=== PATIENT | male | born 1980 | race Caucasian/White ===

== ENCOUNTER 2017-03-24 13:04 | Emergency (ER) | payer OTHER ==
[~2017-03-24] VITALS: Ht 193 cm; Wt 100.0 kg
[2017-03-24] MEDS ORDERED: FAMOTIDINE 20 MG/2 ML IVP ONE (13:30)
[2017-03-24] MEDS ORDERED: SODIUM CHLORIDE 0.9% 1,000ML IVBOLUS ONE (13:30)
[2017-03-24] MEDS ORDERED: SODIUM CHLORIDE FLUSH 10ML SYR IVF ONE (13:30)
[2017-03-24] MEDS ORDERED: ONDANSETRON 2MG/ML, 2ML IVPush ONE (13:30)
[2017-03-24 13:56] LABS: HEMATOCRIT 53.4 % (39.2-51.8); HEMOGLOBIN 18.2 g/dL (13.7-18.0)
[2017-03-24] MEDS ORDERED: FAMOTIDINE 20 MG/2 ML ONE (13:57)
[2017-03-24] MEDS ORDERED: ONDANSETRON 2MG/ML, 2ML ONE (13:57)
[2017-03-24] MEDS ORDERED: HYDROmorphone 1 MG/ML, 1ML ONE ×2 (13:57→15:57)
[2017-03-24 14:08] LABS: ASPARTATE AMINO TRANSFERASE 26 U/L (15-37); BLOOD UREA NITROGEN 27 mg/dL (7-18)
[2017-03-24] MEDS: HYDROmorphone 1 MG/ML, 1ML IVPush PRN ×2 (14:11→15:59)
[2017-03-24 17:14] VITALS: BP 139/98
== END 2017-03-24 17:14 | disposition home or self-care (01) ==
LOC: ED 15:48
DX: R10.84 Generalized abdominal pain (principal); R11.2 Nausea with vomiting, unspecified
CPT/HCPCS: 36415; 74176; 80053; 81003; 83690; 85025; 96361; 96374; 96375; 96376; 99285; J1170; J2405; J7030; S0028

== ENCOUNTER 2020-10-02 19:17 | Observation (INO) | payer OTHER ==
[~2020-10-02] VITALS: Ht 193 cm; Wt 100.9 kg
[2020-10-02 19:46] LABS: BASOPHILS % (AUTO) 0 % (0-1); EOSINOPHILS % (AUTO) 2 % (1-7); LYMPHOCYTES % (AUTO) 8 % (22-44); MEAN CORPUSCULAR HEMOGLOBIN 32.5 pg (27.5-34.5); MEAN CORPUSCULAR HGB CONC 35.3 g/dL (33.2-36.2); MONOCYTES % (AUTO) 5 % (2-9); NEUTROPHILS % (AUTO) 85 % (42-75); PLATELET COUNT 236 x10^3/uL (130-400); RED BLOOD COUNT 5.78 x10^6/uL (4.38-5.82); RED CELL DISTRIBUTION WIDTH 12.9 % (9.4-14.8)
[2020-10-02 19:51] LABS: MD NO
[2020-10-02 20:00] LABS: ALBUMIN 4.3 g/dL (3.4-5.0); ANION GAP 5 mmol/L (5-15); CALCIUM 8.8 mg/dL (8.5-10.1); CHLORIDE 112 mmol/L (98-107); CREATININE 1.16 mg/dL (0.7-1.3)
[2020-10-02] MEDS ORDERED: LORazepam 2 MG/ML, 1ML IV ONE (20:00)
[2020-10-02 20:03] LABS: TROPONIN I < 0.015 ng/mL (0.000-0.045)
[2020-10-02 20:10] LABS: INTERNATIONAL NORMALIZED RATIO 0.97 (0.93-1.1); PROTHROMBIN TIME 10.4 Seconds (9.6-11.5)
[2020-10-02 20:11] LABS: D-DIMER < 0.19 ug/mlFEU (0.00-0.52)
[2020-10-02] MEDS ORDERED: LORazepam 2 MG/ML, 1ML ONE (20:22)
[2020-10-02] MEDS ORDERED: ENALAPRILAT 1.25 MG/ML, 2ML IVPush PRN (21:00)
[2020-10-02] MEDS ORDERED: LABETALOL 5MG/ML, 20ML IVPush PRN (21:00)
[2020-10-02] MEDS ORDERED: ASPIRIN 81 MG TABLET CHEW PO ONE (21:00)
[2020-10-02] MEDS ORDERED: ENALAPRILAT 1.25 MG/ML, 2ML IV ONE (21:00)
[2020-10-02] MEDS ORDERED: DOCUSATE 100 MG CAPSULE PO PRN (21:00)
[2020-10-02] MEDS ORDERED: NITROGLYCERIN 0.4 MG/SPRAY SL PRN (21:00)
[2020-10-02] MEDS ORDERED: morphine SULFATE 10 MG/ML, 1ML IV PRN (21:30)
[2020-10-02] MEDS ORDERED: ENALAPRILAT 1.25 MG/ML, 1ML ONE (21:34)
[2020-10-02] MEDS ORDERED: ASPIRIN 81 MG TABLET CHEW ONE (21:35)
[2020-10-02 22:12] VITALS: BP 148/95
[2020-10-02 22:15] VITALS: BP 148/95
[2020-10-02 23:03] LABS: CHOL/HDL RATIO 4.7; LDL/HDL RATIO 2.3 (0.5-3.0)
[2020-10-02 23:57] LABS: TROPONIN I < 0.015 ng/mL (0.000-0.045)
[2020-10-03 01:45] VITALS: BP 142/92
[2020-10-03 05:35] LABS: BASOPHILS % (AUTO) 1 % (0-1); EOSINOPHILS % (AUTO) 2 % (1-7); LYMPHOCYTES % (AUTO) 14 % (22-44); MEAN CORPUSCULAR HEMOGLOBIN 32.9 pg (27.5-34.5); MEAN CORPUSCULAR HGB CONC 35.5 g/dL (33.2-36.2); MEAN PLATELET VOLUME 8.6 fL (7.4-10.4); MONOCYTES % (AUTO) 7 % (2-9); NEUTROPHILS % (AUTO) 76 % (42-75); PLATELET COUNT 217 x10^3/uL (130-400); RED BLOOD COUNT 5.22 x10^6/uL (4.38-5.82); RED CELL DISTRIBUTION WIDTH 12.7 % (9.4-14.8)
[2020-10-03 05:37] LABS: ANION GAP 7 mmol/L (5-15); CALCIUM 8.3 mg/dL (8.5-10.1); CHLORIDE 108 mmol/L (98-107)
[2020-10-03 05:44] LABS: CREATININE 1.25 mg/dL (0.7-1.3); TROPONIN I < 0.015 ng/mL (0.000-0.045)
[2020-10-03 05:45] LABS: MD NO
[2020-10-03] MEDS ORDERED: ASPIRIN 325 MG TABLET EC PO SCH (06:00)
[2020-10-03 07:12] VITALS: BP 141/90
[2020-10-03] MEDS ORDERED: REGADENOSON 0.4 MG/5 ML SYRINGE ONE (07:24)
[2020-10-03 13:37] LABS: ALANINE AMINOTRANSFERASE 45 U/L (12-78)
[2020-10-03] MEDS ORDERED: METO25TA35 PO (14:15)
[2020-10-03] MEDS ORDERED: METOPROLOL TARTRATE 25 MG TAB PO SCH (18:00)
[2020-10-03] MEDS ORDERED: ATORVASTATIN 80 MG TABLET PO SCH (21:00)
== END 2020-10-03 15:21 | disposition home or self-care (01) ==
LOC: ED 21:18 → EDIP 21:35 → INTOOBSV 21:35 → 5SO 22:08 → DCLOUNGE 10-03 15:11
PROVIDERS: ADMIT Family Medicine; ATTEND Hospitalist
DX: R07.89 Other chest pain (principal); I10 Essential (primary) hypertension; I20.9 Angina pectoris, unspecified; E78.1 Pure hyperglyceridemia; E78.5 Hyperlipidemia, unspecified; F17.290 Nicotine dependence, other tobacco product, uncomplicated; Z79.899 Other long term (current) drug therapy
CPT/HCPCS: 36415; 71046; 71275; 78452; 80048; 80061; 82040; 83690; 84443; 84450; 84460; 84484; 85025; 85379; 85610; 93005; 93017; 96374; 99285; A9502; G0378; J2060; J2785

== ENCOUNTER 2020-10-05 03:41 | Emergency (ER) | payer OTHER ==
[~2020-10-05] VITALS: Ht 193 cm; Wt 100.0 kg
[~2020-10-05 03:41] MED LIST: METO25TA35 PO
[2020-10-05] MEDS ORDERED: SODIUM CHLORIDE FLUSH 10ML SYR IVF ONE (04:00)
[2020-10-05] MEDS ORDERED: FAMOTIDINE 20 MG TABLET ONE (04:14)
[2020-10-05] MEDS ORDERED: ONDANSETRON ODT 4 MG ONE (04:14)
[2020-10-05] MEDS ORDERED: HYDROcodone/APAP 5/325 TABLET ONE (04:15)
[2020-10-05] MEDS ORDERED: MAALOX/HYOSCYAMINE/LIDOCAINE 45 ML BTL ONE (04:15)
--- NOTE | 2020-10-05 04:18 | NUR ---
PATIENT REPORTS THAT HE WENT TO THE D[facility]ING MANA[facility] YESTERDAY FOR HIGH BP AND "I THOUGHT I HAD A HEART ATTACK" AND STATES HE WAS PUT ON MEDICATIONS BUT ONLY PICKED UP ONE OUT OF 3 OF THEM YESTERDAY. HE STATES HE HAS NOT TAKEN A DOSE YET. METOPROLOL 25MG
--- NOTE | 2020-10-05 04:23 | NUR ---
PATIENT RESTING IN BED IN NAD. CALL [facility] IN [place]. DR GROVES PERFORMED RECTAL EXAM WHILE THIS RN WAS AT BEDSIDE. PATIENT REPORTS "I SNEEZED IN THE CAR ON THE WAY HERE AND FELT LIKE SOMETHING RIPPED IN MY STOMACH". SAFETY MAINTAINED. MEDICATIONS ORDERED ADMINISTERED WITH VERBAL EDUCATION PROVIDED. WILL CONTINUE TO MONITOR.
[2020-10-05 04:24] LABS: BASOPHILS % (AUTO) 1 % (0-1); EOSINOPHILS % (AUTO) 1 % (1-7); LYMPHOCYTES % (AUTO) 30 % (22-44); MEAN CORPUSCULAR HEMOGLOBIN 32.4 pg (27.5-34.5); MEAN CORPUSCULAR HGB CONC 34.9 g/dL (33.2-36.2); MEAN PLATELET VOLUME 8.1 fL (7.4-10.4); MONOCYTES % (AUTO) 11 % (2-9); NEUTROPHILS % (AUTO) 56 % (42-75); PLATELET COUNT 211 x10^3/uL (130-400); RED BLOOD COUNT 5.23 x10^6/uL (4.38-5.82); RED CELL DISTRIBUTION WIDTH 13.2 % (9.4-14.8)
[2020-10-05 04:25] LABS: ALANINE AMINOTRANSFERASE 52 U/L (12-78); ALBUMIN 3.9 g/dL (3.4-5.0); ANION GAP 5 mmol/L (5-15); CALCIUM 8.5 mg/dL (8.5-10.1); CHLORIDE 110 mmol/L (98-107); CREATININE 1.13 mg/dL (0.7-1.3)
[2020-10-05 04:26] LABS: MD NO
[2020-10-05 04:29] LABS: ALKALINE PHOSPHATASE 92 U/L (45-117); BILIRUBIN,TOTAL 0.3 mg/dL (0.2-1.0); TOTAL PROTEIN 7.5 g/dL (6.4-8.2); TROPONIN I < 0.015 ng/mL (0.000-0.045)
[2020-10-05] MEDS ORDERED: HYDROcodone/APAP 5/325 TABLET PO ONE (04:30)
[2020-10-05] MEDS ORDERED: ONDANSETRON ODT 4 MG PO ONE (04:30)
[2020-10-05] MEDS ORDERED: FAMOTIDINE 20 MG TABLET PO ONE (04:30)
[2020-10-05] MEDS ORDERED: MAALOX/HYOSCYAMINE/LIDOCAINE 45 ML BTL PO ONE (04:30)
[2020-10-05 04:58] VITALS: BP 160/111
== END 2020-10-05 05:02 | disposition home or self-care (01) ==
LOC: ED 04:34
DX: K29.00 Acute gastritis without bleeding (principal); R94.31 Abnormal electrocardiogram [ECG] [EKG]; I10 Essential (primary) hypertension; F17.290 Nicotine dependence, other tobacco product, uncomplicated
CPT/HCPCS: 36415; 80053; 80320; 83690; 84484; 85025; 86850; 86900; 93005; 99284; 99406; Q0162; G0480

== ENCOUNTER → 2020-10-15 | Outpatient (CLI) | payer OTHER | END | disposition home or self-care (01) | LOC: CFH 14:42 | PROVIDERS: ATTEND Internal Medicine Cardiovascular Disease | DX: I35.8 Other nonrheumatic aortic valve disorders (principal); I11.9 Hypertensive heart disease without heart failure; R07.9 Chest pain, unspecified | CPT/HCPCS: 93306 ==